=== PATIENT | female | born 1970 | race Caucasian/White ===

== ENCOUNTER 2025-04-14 06:15 | Day surgery (SDC) | payer BC, SELFPAY ==
--- NOTE | 2025-04-01 10:26 | VNURNOTE ---
Patient is scheduled for an elective L AVERY on 04/14 - she is a same day patient with Dr Saldana. Spoke with patient prior to surgery. Introduced role of [facility] Liaison. Patient reports that she lives with her spouse.
She has a rolling walker.
She had VN services after prior knee surgery but was not same day surgery.
PCP is Dr Helen Aleman
Discussed [facility] joint protocol and post surgical plans.
Reviewed that she will have VN services initially and will then start outpatient PT.
Patient selects [facility] for home care needs and will go to [facility] for outpatient PT. She still has to schedule outpt. Advised her to schedule outpt for the Saturday after surgery (04/19). Patient verbalized understanding.
Patient is in agreement with plan and states that her spouse will be home with her. She has 2 dogs; advised her of [facility] pet policy and pt verbalized understanding. Advised to bring RW with her day of surgery. Referral placed in [facility].
Plan: [facility] per [facility] joint protocol 04/14 then outpt PT TBD
[2025-04-05 13:58] VITALS: BMI 37.7
[2025-04-05 14:06] LABS: Hematocrit 38.9 % (37.0-47.0); Hemoglobin 12.9 g/dL (12.0-16.0); Mean Corp Hgb Conc. 33.2 g/dL (33.0-37.0); Mean Corpuscular Volume 83.8 fL (81.0-99.0); Platelet Count 179 10^3/uL (130-400); Red Cell Dist. Width 13.3 % (11.5-14.5)
[2025-04-05 14:38] LABS: ALT (SGPT) 11 U/L (0-35); AST (SGOT) 12 U/L (14-36); Albumin 4.2 g/dl (3.5-5.0); Alkaline Phosphatase 73 U/L (38-126); Blood Urea Nitrogen 9 mg/dl (7-17); Calcium 9.8 mg/dl (8.4-10.2); Carbon Dioxide 29 mmol/L (22-30); Chloride 101 mmol/L (98-107); Estimated Creatinine Clearance 65 ml/min; Glucose 57 mg/dl (70-99); Potassium 4.6 mmol/L (3.5-5.1); Sodium 133 mmol/L (135-145); Total Protein 6.8 g/dl (6.3-8.2); eGFR 59.71
[2025-04-05 18:06] VITALS: BMI 37.7
[2025-04-06 09:04] LABS: Glycohemoglobin (HgbA1c) 4.5 % (4.0-5.9)
--- NOTE | 2025-04-12 11:37 | W.PN.UPDATE ---
Update Note
Progress Note Update
Did speak w/ Dr Tiwari's office pre-operatively.
Per pain mgmt, will keep current pain medication regimen of Oxycodone and Clonazepam the same.
Pain mgmt to follow-up w/ patient 2 weeks post-surgery.
Pt also has on board Tylenol, Decadron, Celebrex, home Duloxetine and Cyclobenzaprine prn.
[2025-04-14] VITALS (12 sets, daily range): BP systolic 110–139; BP diastolic 75–90; PULSE 81; O2SAT 93; BMI 37.7
[2025-04-14 09:22] LABS: Glucose - Point of Care 83 mg/dl (70-99)
[2025-04-14] MEDS: CELEBREX 200 MG PO (09:28)
[2025-04-14] MEDS: TYLENOL 650 MG PO (09:28)
[2025-04-14] MEDS: NORMOSOL-R/PLASMALYTE-A 1000 IV (09:29)
[2025-04-14] MEDS: ANCEF 5 IV (14:38)
[2025-04-14] MEDS: ROXICODONE 5 MG PO (14:51)
== END 2025-04-14 15:05 | disposition home health service (06) ==
LOC: SDS 06:15
PROVIDERS: ATTENDING PHYSICIAN Orthopaedic Surgery; FAMILY PHYSICIAN Family Medicine
DX: M17.12 Unilateral primary osteoarthritis, left knee (principal)
CPT/HCPCS: 27447; C1713; C1776; 73560; 80053; 82962; 83036; 85027; 87070; 93005; 97162